=== PATIENT | female | born 1980 | race Two or more races ===

== ENCOUNTER 2024-11-28 09:09 | Emergency (ER) | payer SELFPAY ==
[2024-11-28 09:29] VITALS: BP 111/64; PULSE 73; RESP 16; TEMP 37.1; O2SAT 99
--- NOTE | 2024-11-28 09:31 | XR_ITS ---
Examination: Abdomen sonogram, Limited Date and time of exam: November 28, 2024 at 0943 hrs. Indications: Right upper abdominal pain today Technique: Real-time alonso scale transabdominal sonographic images of the upper abdomen obtained. Findings: 15 mm gallstone Normal gallbladder wall Normal common bile duct 0.3 cm Pancreatic head 2.4 cm Liver 16.9 cm fatty infiltration no focal liver lesions Normal hepatopedal portal venous flow Patent IVC Impression: Cholelithiasis, negative for cholecystitis Fatty liver
--- NOTE | 2024-11-28 09:32 | PD.EDRME ---
Rapid Medical Screening Exam RME Arrival date/time: 11/28/24 09:09 44-year-old female with no known medical history presents to the emergency room with a chief complaint of 7 out of 10 generalized abdominal pain and tenderness x 1 day. I have greeted and performed a focused initial assessment of this patient. A comprehensive ED assessment and evaluation of the patient, analysis of all test results, and completion of the medical decision making process will be conducted by additional ED providers. Chief Complaint: Abdominal Pain Vital signs: Vital Signs Temperature 98.7 F 11/28/24 09:29 Pulse Rate 73 11/28/24 09:29 Respiratory Rate 16 11/28/24 09:29 Blood Pressure 111/64 11/28/24 09:29 Pulse Oximetry (%) 99 11/28/24 09:29 Oxygen Delivery Method Room Air 11/28/24 09:29 Vital signs reviewed by provider: Yes
[2024-11-28 09:55] LABS: Collection Type, Urine Clean Catch
[2024-11-28 09:59] LABS: Bilirubin,Urine Negative (Negative); Blood,Urine Negative (Negative); Clarity,Urine Clear (Clear/Hazy); Color,Urine Colorless (Lt Yel-Yel); Glucose, Urine Negative (Negative); Ketones,Urine Negative (Negative); Leukocyte Esterase,Urine Negative (Negative); Nitrite,Urine Negative (Negative); PH,Urine 6.5 (5.0-7.0); Protein,Urine Negative (Neg - Trace); RBC,Urine 1 /hpf (0-3); Specific Gravity,Urine 1.008 (1.001-1.035); Squamous Epithelial Cell,Urine 1 /hpf (0-5); Urobilinogen,Urine Negative mg/dL (0.0-1.0); WBC,Urine 1 /hpf (0-5)
[2024-11-28 10:00] LABS: HCG Qualitative,Urine Negative
[2024-11-28 10:16] LABS: Basophils # (Auto) 0.1 Thou/mm3 (0.0-0.2); Basophils % (Auto) 1 % (0-2.5); Eosinophils # (Auto) 0.4 Thou/mm3 (0.0-0.5); Eosinophils % (Auto) 6 % (0-10); Hematocrit 37.3 % (36.0-46.0); Hemoglobin 12.8 g/dL (12.0-16.0); Immature Granulocytes % (Auto) 0 % (0-0); Immature Granulocytes Auto 0.02 Thou/mm3 (0.00-0.00); Lymphocytes # (Auto) 1.9 Thou/mm3 (1.0-4.8); Lymphocytes % (Auto) 30 % (10-50); Mean Corpuscular HGB Conc 34.3 g/dl (31.0-37.0); Mean Corpuscular Hemoglobin 28.8 pg (25.0-35.0); Mean Corpuscular Volume 84 fL (80-100); Monocytes # (Auto) 0.7 Thou/mm3 (0.0-0.8); Monocytes % (Auto) 11 % (0-12); Neutrophils # (Auto) 3.3 Thou/mm3 (1.8-7.7); Neutrophils % (Auto) 52 % (37-80); Nucleated Red Blood Cell % 0 /100 WBC (0); Platelet Count 236 Thou/mm3 (140-440); RDW Standard Deviation 40.2 fL (36.4-46.3); Red Blood Count 4.44 Miln/mm3 (4.00-5.20); White Blood Count 6.4 Thou/mm3 (3.6-11.0)
[2024-11-28 10:36] LABS: Alanine Aminotransferase 34 U/L (10-49); Albumin, Serum 4.5 gm/dL (3.5-5.0); Albumin/Globulin Ratio 1.6 (1.2-2.2); Alkaline Phosphatase 93 U/L (46-116); Anion Gap 7 (7-16); Aspartate Amino Transferase 26 U/L (0-34); BUN/Creatinine Ratio 17 Ratio (12-20); Bilirubin,Total 0.6 mg/dL (0.3-1.2); Blood Urea Nitrogen 10 mg/dL (9-23); Calcium 9.9 mg/dL (8.3-10.6); Calcium (Corrected) 9.9 mg/dL (8.5-10.1); Chloride 102 mMol/L (98-107); Creatinine (Component) 0.6 mg/dL (0.6-1.3); Globulin 2.9 gm/dL (2.3-3.5); Glucose 114 mg/dL (74-106); Lipase 52 U/L (12-53); Osmolality,Calculated 275 (275-295); Potassium 3.9 mMol/L (3.4-5.1); Sodium 138 mMol/L (136-145); Total Protein 7.4 gm/dL (5.7-8.2); eGFR > 60 See Note
[2024-11-28 11:56] VITALS: BP 119/78; PULSE 63; RESP 18; TEMP 36.7; O2SAT 99
--- NOTE | 2024-11-28 12:02 | PD.EDABDPN ---
ED Abdominal Pain RME/HPI General Chief Complaint: Abdominal Pain Stated complaint: ABD PAIN X YESTERDAY Time seen by provider: 11/28/24 11:33 Arrival date/time: 11/28/24 09:09 This is a 44-year-old female who presents to the emergency department with complaints of right upper quadrant abdominal pain. Patient reports she has had pain for 2 days. Not associate with nausea or vomiting. No fever or chills. She does have a history of cholelithiasis however has not had pain for over a year. Has not followed up with outpatient surgery. Patient did not attempt any interventions or take any OTC medications prior to ED visit. RME / HPI RME / HPI narrative: 11/28/24 09:09 44-year-old female with no known medical history presents to the emergency room with a chief complaint of 7 out of 10 generalized abdominal pain and tenderness x 1 day. I have greeted and performed a focused initial assessment of this patient. A comprehensive ED assessment and evaluation of the patient, analysis of all test results, and completion of the medical decision making process will be conducted by additional ED providers. Related Data Previous Rx's ?Medication ?Instructions ?Recorded cetirizine 10 mg tablet (Zyrtec) 10 mg PO QDAY PRN allergy symptoms 10/21/18 #30 tabs ibuprofen 800 mg tablet 800 mg PO TID PRN fever or pain 10/21/18 #60 tabs Allergies Allergy/AdvReac Type Severity Reaction Status Date / Time No Known Allergies Allergy Verified 11/28/24 09:11 Review of Systems Review of Systems Systems Reviewed: All systems reviewed, normal except as documented Narrative Review of Systems: Gen: No fever, no chills, no weight loss EYES: No discharge, no visual changes, no pain HEENT: No ear pain, no congestion, no sore throat PULM: No shortness of breath, no cough, no congestion CV: No chest pain, no dyspnea on exertion, no palpitations GI: No nausea, no vomiting, no diarrhea, ++ pain, no constipation : No frequency, no urgency,? no dysuria Musc/skel: No joint pain, no back pain Skin: No rash? Psyc: No hallucinations, no depression Heme/Lymph: No easy bleeding or bruising tendencies Neuro: No weakness, no headache ED Exam Narrative Physical exam: General: Sittiing in Exam table in no acute distress, answering questions appropriately HENT: normocephalic, atraumatic, EOMI, PERRLA, moist mucous membranes Chest: chest wall is nontender Cardiac: regular rate and rhythm, normal S1 and S2, no murmurs, rubs, or gallops, capillary refill ?2 seconds Pulmonary: clear to auscultation bilaterally, no wheezing, crackles, or rhonchi Abdominal: active bowel sounds, soft, nontender, nondistended Neuro: A&OX3, CN II-XII intact, sensation grossly intact bilaterally in UE and LE. Skin: no rashes, no ecchymosis Ext: no lower extremity edema Course Quality Measures none Orders Category Date Time Status US gall bladder Stat Exams 11/28/24 09:31 Completed CBC Stat Lab 11/28/24 10:05 Completed CMP [Comprehensive Metabolic Panel] Stat Lab 11/28/24 10:05 Completed HCG Qualitative,Urine Stat Lab 11/28/24 09:41 Completed Lipase Stat Lab 11/28/24 10:05 Completed UA [Urinalysis] Stat Lab 11/28/24 09:41 Completed Urine Culture Stat Lab 11/28/24 09:41 Received Vital Signs Vital signs: Vital Signs Temperature 98.7 F 11/28/24 09:29 Pulse Rate 73 11/28/24 09:29 Respiratory Rate 16 11/28/24 09:29 Blood Pressure 111/64 11/28/24 09:29 Pulse Oximetry (%) 99 11/28/24 09:29 Oxygen Delivery Method Room Air 11/28/24 09:29 Abdominal Pain MDM MDM Narrative MDM Narrative:: 44-year-old female awake and alert vital signs stable presents to the emergency department with complaints of upper abdominal pain. Patient's labs unremarkable reassuring. Patient's ultrasound does demonstrate a 15 mm stone. Patient's liver enzymes normal, T. bili normal. Patient's pain is controlled. Patient is advised to follow-up outpatient with PCP for general surgery referral. Patient data External records reviewed:: [facility] previous records Clinical information provided by:: patient Social determinants that could affect healthcare access:: none Patient has the following chronic illnesses:: None How is presenting disease/condition affected by chronic disease/condition?: no chronic disease Evaluation data The following diagnostics were reviewed and interpreted by me:: lab results and radiology exam(s) Lab and/or radiology exams considered but not ordered:: All imaging considered ordered. Interpretation Summary: Examination: Abdomen sonogram, Limited Date and time of exam: November 28, 2024 at 0943 hrs. Indications: Right upper abdominal pain today Technique: Real-time alonso scale transabdominal sonographic images of the upper abdomen obtained. Findings: 15 mm gallstone Normal gallbladder wall Normal common bile duct 0.3 cm Pancreatic head 2.4 cm Liver 16.9 cm fatty infiltration no focal liver lesions Normal hepatopedal portal venous flow Patent IVC Impression: Cholelithiasis, negative for cholecystitis Fatty liver Medications / Prescriptions Medications or Prescriptions considered but not ordered:: No Medication administrations:: No Consultations Consultation(s) initiated? (list below): No Diagnosis Differential diagnosis abdominal pain: abdominal pain, calculus of kidney, constipation, diverticulitis, gastroenteritis and pancreatitis Most likely diagnosis given after review of the tests above:: Cholelithiasis Admission Indicated Admission indicated?: not indicated Admission Request Was there a request for admission?: No Disposition Plan Disposition Plan: Discharge Discharge Attestation Discharge Attestation: The patient and all family members were given an opportunity to ask questions and understood the discharge instructions. Discharge instructions specifically effects, indications for sooner follow up or return to the emergency department, and the expected course of current diagnosis. Patient condition: Stable Discharge Plan Plan Patient Disposition: HOME (Self Care) Patient condition on transfer: Stable Prescriptions/Referrals Prescriptions/Med Rec: No Action cetirizine [Zyrtec] 10 mg tablet 10 mg PO QDAY PRN (Reason: allergy symptoms) Qty: 30 0RF ibuprofen 800 mg tablet 800 mg PO TID PRN (Reason: fever or pain) Qty: 60 0RF Problem List Clinical Impression: Cholelithiasis Patient/Caregiver Discharge Instructions Discharge Activity: activity as tolerated Education Materials: What Are Gallstones Additional Instructions: Please make sure you follow-up with your primary doctor in 1 to 2 days. For follow-up care. Please attempt to decrease fatty intake, no meats, no eggs, no fried food. You do have a gallstone 15 mm. You might need an outpatient referral for general surgery. Return to the emergency department if there is any worsening symptoms or change in condition. Print Language: Tongan Stand Alone Forms: Gina Award Info., Patient Portal Info Letter PA/PATIENT DAY COORDINATOR Supervising Physician PA/PATIENT DAY COORDINATOR Supervising Physician: Dr. Rivera
== END 2024-11-28 12:20 | disposition home or self-care (01) ==
LOC: SERX 12:45
PROVIDERS: Nurse Practitioner Family; Emergency Provider Emergency Medicine
DX: K80.20 Calculus of gallbladder without cholecystitis without obstruction (principal)
CPT/HCPCS: 36415; 76705; 80053; 81001; 81025; 83690; 85025; 87086; 99284

== ENCOUNTER 2024-12-31 06:45 | Day surgery (SDC) | payer MEDICAID, SELFPAY ==
[2024-12-24 10:58] VITALS: BMI 31.1
--- NOTE | 2024-12-24 11:20 | EKG_ITS ---
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
[2024-12-24 12:20] LABS: Basophils # (Auto) 0.1 Thou/mm3 (0.0-0.2); Basophils % (Auto) 1 % (0-2.5); Eosinophils # (Auto) 0.4 Thou/mm3 (0.0-0.5); Eosinophils % (Auto) 6 % (0-10); Hematocrit 36.9 % (36.0-46.0); Hemoglobin 12.6 g/dL (12.0-16.0); Immature Granulocytes % (Auto) 0 % (0-0); Immature Granulocytes Auto 0.02 Thou/mm3 (0.00-0.00); Lymphocytes % (Auto) 32 % (10-50); Mean Corpuscular HGB Conc 34.1 g/dl (31.0-37.0); Mean Corpuscular Hemoglobin 28.8 pg (25.0-35.0); Mean Corpuscular Volume 84 fL (80-100); Monocytes # (Auto) 0.5 Thou/mm3 (0.0-0.8); Monocytes % (Auto) 8 % (0-12); Neutrophils # (Auto) 3.2 Thou/mm3 (1.8-7.7); Neutrophils % (Auto) 53 % (37-80); Nucleated Red Blood Cell % 0 /100 WBC (0); Platelet Count 248 Thou/mm3 (140-440); RDW Standard Deviation 40.6 fL (36.4-46.3); Red Blood Count 4.37 Miln/mm3 (4.00-5.20); White Blood Count 6.1 Thou/mm3 (3.6-11.0)
[2024-12-24 12:38] LABS: Alanine Aminotransferase 38 U/L (10-49); Albumin, Serum 4.5 gm/dL (3.5-5.0); Albumin/Globulin Ratio 1.4 (1.2-2.2); Alkaline Phosphatase 84 U/L (46-116); Anion Gap 9 (7-16); Aspartate Amino Transferase 33 U/L (0-34); BUN/Creatinine Ratio 18 Ratio (12-20); Bilirubin,Total 0.5 mg/dL (0.3-1.2); Blood Urea Nitrogen 9 mg/dL (9-23); Carbon Dioxide 26.2 mMol/L (20.0-31.0); Chloride 104 mMol/L (98-107); Creatinine (Component) 0.5 mg/dL (0.6-1.3); Estimated Creatinine Clearance 134.1 mL/min (>60); Globulin 3.2 gm/dL (2.3-3.5); Glucose 95 mg/dL (74-106); Osmolality,Calculated 276 (275-295); Sodium 139 mMol/L (136-145); Total Protein 7.7 gm/dL (5.7-8.2); eGFR > 60 See Note
[2024-12-24 12:41] LABS: Partial Thromboplastin Time 25.3 Seconds (22.0-36.0); Prothrombin Time 10.8 Seconds (9.0-12.2)
--- NOTE | 2024-12-30 14:31 | SUR.PREOP ---
Pt notified to come in at 0700 tomorrow for surgery.
[2024-12-31] VITALS (9 sets, daily range): BP systolic 119–153; BP diastolic 65–80; PULSE 50–64; RESP 12–19; TEMP 36.6–36.9; O2SAT 99–100; BMI 30.6
[2024-12-31] MEDS: RINGERS LACTATED 1000 ML 1,000 ML 20 ML IV (07:25)
--- NOTE | 2024-12-31 10:46 | SUR.PHASEI ---
1046 Patient arrived to recovery resting comfortably in [facility] on oxygen 8L via oxy mask with an oral airway in place, breathing unlabored, vital signs stable, dressing intact to abdomen; sutures, steri-strips, gauze, medipore tape, no bleeding noted, report received from Jack LIU and Dr. Hurt
--- NOTE | 2024-12-31 10:52 | PD.SUROPNT ---
Date of Procedure 12/31/24 Pre Op Diagnosis Symptomatic cholelithiasis Post Op Diagnosis Same Procedure Laparoscopic cholecystectomy Findings Patient was found to have a noninflamed gallbladder with a single stone measuring 15 mm Procedure Description After endotracheal anesthesia was given the patient was placed in supine position and the abdomen was prepped with chloroprep solution and draped in a sterile manner. After time out was performed I injected a few cc of of half percent Marcaine with epinephrine below the umbilicus and I made an incision for about 3 cm in length. The fascia was cleaned and Veress needle was inserted to create a pneumoperitoneum up to 15 mmHg. Then introduced a 12 mm trocar and a 10 mm camera through the fascia and I inspected the intra-abdominal organs as well as the gallbladder and the liver. Another 5 mm trocar was inserted in the epigastric region under direct vision after injecting some local anesthesia. At this time the patient was kept in reverse Trendelenburg position with the left lateral tilt. The third 5 mm trocar was inserted over the mid axillary line under direct vision and a Sarath and Gabbi grasper was used to hold the fundus of the gallbladder. The retraction was carried out by the assistant account executive moving the fundus of the gallbladder towards the right shoulder of the patient to create enough traction. I placed a another 5 mm trocar in the midaxillary line just lateral to the rectus muscle under direct vision. I used a fenestrated grasper to retract the neck of the gallbladder laterally towards the patient's right hip. The Calot's triangle was exposed and I achieved the critical view of safety as follows: I dissected out the fatty tissue from the hepatocystic triangle and cleared this area. I also dissected inferior and posterior to the gallbladder to identify the cystic duct and the gallbladder wall. Then superiorly I dissected along the cystic plate up to lower one third third of the gallbladder to lift the gallbladder from the liver. At this time I confirmed that only 2 structures entering the gallbladder were cystic artery and the cystic duct. The common duct was seen distally but no dissection was carried out around the duct. I did not see any need for operative cholangiogram in this patient. The cystic duct was clipped doubly and then divided and cystic artery was similarly dealt with. Then the gallbladder was removed from the liver bed using Harmonic preet to control the small blood vessels as the dissection proceeded. The gallbladder tore on bile leaked but the stone was in place within the gallbladder. At this time I started 2 g of Ancef because it was a clean contaminated case. Extensive irrigation was carried out to clear all the bile surrounding the liver. Then the gallbladder was from the liver bed completely and delivered through the umbilical port using an Endopouch. The liver bed was coagulated with cautery to obtain satisfactory hemostasis. The trocars were pulled out from the abdominal cavity and the fascia at the umbilical incision was closed with interrupted 0 Ethibond. Subcutaneous tissues was closed with 3-0 chromic and injected a few cc of half percent Marcaine with epinephrine and the skin was closed with interrupted 4-0 Monocryl subcuticular stitches at all the trocar sites. Dressing was applied with 2 x 2 and Tegaderm. Patient tolerated the procedure well and returned to recovery room in stable condition. Anesthesia GETA Pathology / specimen Other (Gallbladder and the stone) IVF Infused 800 Estimated Blood Loss 50 Surgeon Pedro Pablo Almanza MD Surgical Staff Operation Date: 12/31/24 09:00 Case Staff Anesthesiologist: Chris Hurt RN First Assistant: Mayra Sylvester
[2024-12-31] MEDS: MORPHINE SULF INJ 10 MG/ML VIAL 3 MG IV (11:24)
[2024-12-31] MEDS: ACETAMINOPHEN IVPB 1,000 MG/100 ML VIAL 250 MG IV (11:26)
--- NOTE | 2024-12-31 12:16 | SUR.PHASEII ---
1216 Patient meets discharge criteria from recovery, awake and alert, breathing unlabored, vital signs stable, per patient her pain is tolerable, dressing intact; no bleeding noted, patient voided in the restroom prior to discharge, drinking fluids; tolerating well, denies nausea, assisted with dressing into her clothing by her , discharge instructions given to patient and patients with the assistance of the telephone hiv nurse Naomy ID#[id number] with teach-back approach, both receptive of instructions, patient signed discharge instructions. Patient given all her belongings prior to discharge, transported via wheelchair and left in a private vehicle
== END 2024-12-31 12:16 | disposition home or self-care (01) ==
PROVIDERS: PCP Family Medicine; Referring Provider Surgery; Visit Provider Surgery
PROC: 0FT44ZZ Resection of Gallbladder, Percutaneous Endoscopic Approach (ICD-10-PCS; CPT 47562; principal; 2024-12-31 09:00)
DX: K80.10 Calculus of gallbladder with chronic cholecystitis without obstruction (principal); E78.2 Mixed hyperlipidemia; Z01.810 Encounter for preprocedural cardiovascular examination
CPT/HCPCS: 47562; 36415; 80053; 85025; 85610; 85730; 93005; A4217; A4649; J0131; J0690; J2250; J2270; J2704; J3010; J3490; J7120

== ENCOUNTER 2025-03-28 11:09 | Emergency (ER) | payer MEDICAID, SELFPAY ==
[2025-03-28 11:18] VITALS: BP 126/74; PULSE 74; RESP 16; TEMP 37.1; O2SAT 100; BMI 30.2
--- NOTE | 2025-03-28 11:27 | EDNOTE_ITS ---
ED Female Urogenital RME/HPI General Chief complaint: Urogenital-Female Stated complaint: Heavy vaginal bleeding with period Time Seen by Provider: 03/28/25 11:12 Source: patient Arrival date/time: 03/28/25 11:09 45-year-old female with no known medical history presents to the emergency room with a chief complaint of heavy vaginal bleeding. Patient states she is currently on her period but her menses has been a lot heavier than usual. Mode of arrival: ambulatory Limitations: no limitations Related Data Home Medications ?Medication ?Instructions ?Recorded ?Confirmed metformin 500 mg/5 mL oral solution 500 mg PO HS 12/2612/26/24 Previous Rx's ?Medication ?Instructions ?Recorded cetirizine 10 mg tablet (Zyrtec) 10 mg PO QDAY PRN all ergy symptoms 10/21/18 #30 tabs Allergies Allergy/AdvReac Type Severity Reaction Status Date / Time No Known Allergies Allergy Verified 12/24/24 10:56 ED Exam General Limitations: Present no limitations Course Quality Measures none Orders Category Date Time Status US pelvic complete Stat Exams 03/28/25 11:28 Completed CBC Stat Lab 03/28/25 12:03 Completed CMP [Comprehensive Metabolic Panel] Stat Lab 03/28/25 12:03 Completed UA, C/S IF [Urinalysis, C/S if Indicated] Stat Lab 03/28/25 11:57 Completed Vital Signs Vital signs: Vital Signs Temperature 98.8 F 03/28/25 11:18 Pulse Rate 74 03/28/25 11:18 Respiratory Rate 16 03/28/25 11:18 Blood Pressure 126/74 03/28/25 11:18 Pulse Oximetry (%) 100 03/28/25 11:18 Oxygen Delivery Method Room Air 03/28/25 11:18 Urogenital - Female MDM Narrative MDM Narrative:: 45-year-old female with no known medical history presents to the emergency room with a chief complaint of heavy vaginal bleeding. Patient states she is currently on her period but her menses has been a lot heavier than usual. Patient is hemodynamically stable and in no apparent distress Physical examination shows a soft nontender abdomen. Patient states she is on her menses but she is bleeding heavier than usual. Patient also states she is having some left pelvic pain. Ultrasound of the pelvis was completed and was negative for any acute findings. H&H was within normal limits. CBC CMP and urinalysis were within normal limits Patient was discharged and educated to follow-up with primary care provider in the next 24 to 48 hours and return to the emergency room for any evidence of worsening signs or symptoms Patient data External records reviewed:: [facility] previous records Clinical information provided by:: patient Social determinants that could affect healthcare access:: none Patient has the following chronic illnesses:: No chronic illness How is presenting disease/condition affected by chronic disease/condition?: no chronic disease Evaluation data The following diagnostics were reviewed and interpreted by me:: lab results and radiology exam(s) Lab and/or radiology exams considered but not ordered:: Labs and radiology exams considered and ordered Interpretation Summary: Pelvic ultrasound-FINDINGS: Uterus 7.6 cm endometrial stripe 0.4 cm No uterine mass or intrauterine gestation Right ovary 3.1 cm arterial flow. Left ovary 3.4 cm arterial flow IMPRESSION: No uterine mass or intrauterine gestation Medications / Prescriptions Medications or Prescriptions considered but not ordered:: Medication not given Medication administrations:: Medication not given Consultations Consultation(s) initiated? (list below): No Diagnosis Urogenital Female Differential Diagnosis: cystitis and other (Urinary tract infection/vaginal bleeding/ovarian cyst) Most likely diagnosis given after review of the tests above:: Vaginal bleeding Admission Indicated Admission indicated?: not indicated Admission Request Was there a request for admission?: No Disposition Plan Disposition Plan: Discharge Discharge Attestation Discharge Attestation: The patient and all family members were given an opportunity to ask questions and understood the discharge instructions. Discharge instructions specifically effects, indications for sooner follow up or return to the emergency department, and the expected course of current diagnosis. Patient condition: Stable Discharge Plan Plan Patient Disposition: HOME (Self Care) Discharge Disposition comment: Stable Prescriptions/Referrals Prescriptions/Med Rec: No Action cetirizine [Zyrtec] 10 mg tablet 10 mg PO QDAY PRN (Reason: allergy symptoms) Qty: 30 0RF metformin 500 mg/5 mL solution 500 mg PO HS Referrals: Gustavo Lopez MD [Primary Care Provider] - In 1 week Problem List Clinical Impression: Vaginal bleeding Patient/Caregiver Discharge Instructions Education Materials: ED Dysfunctional Uterine Bleeding Additional Instructions: Por favor, consulte con duvall m?dico de cabecera en las pr?ximas 24 a 48 horas. Duvall ecograf?a p?lvica y gino an?lisis de marcela fueron normales. Por favor, consulte con un ginec?logo/obstetra y acuda a urgencias si presenta cualquier signo de empeoramiento de los signos o s?ntomas. Print Language: Korean Stand Alone Forms: Gina Award Info., Patient Portal Info Letter PA/GAS DISTRIBUTION AND EMERGENCY CLERK Supervising Physician PA/GAS DISTRIBUTION AND EMERGENCY CLERK Supervising Physician: Dr. Sharp
--- NOTE | 2025-03-28 11:28 | XR_ITS ---
Examination: Pelvic ultrasound, transabdominal, complete Technique: Transabdominal ultrasound of the pelvis performed using grayscale imaging Date and time of exam: March 28, 2025 1326 hours INDICATIONS: Irregular heavy vaginal bleeding beginning 6 months ago FINDINGS: Uterus 7.6 cm endometrial stripe 0.4 cm No uterine mass or intrauterine gestation Right ovary 3.1 cm arterial flow. Left ovary 3.4 cm arterial flow IMPRESSION: No uterine mass or intrauterine gestation
--- NOTE | 2025-03-28 12:08 | PC.NURSE ---
water given for US.
[2025-03-28 12:10] LABS: Collection Type, Urine Clean Catch
[2025-03-28 12:26] LABS: Basophils # (Auto) 0.1 Thou/mm3 (0.0-0.2); Basophils % (Auto) 1 % (0-2.5); Eosinophils # (Auto) 0.4 Thou/mm3 (0.0-0.5); Eosinophils % (Auto) 7 % (0-10); Hemoglobin 12.7 g/dL (12.0-16.0); Immature Granulocytes % (Auto) 1 % (0-0); Immature Granulocytes Auto 0.03 Thou/mm3 (0.00-0.00); Lymphocytes # (Auto) 1.4 Thou/mm3 (1.0-4.8); Lymphocytes % (Auto) 23 % (10-50); Mean Corpuscular HGB Conc 34.3 g/dl (31.0-37.0); Mean Corpuscular Hemoglobin 29.4 pg (25.0-35.0); Mean Corpuscular Volume 86 fL (80-100); Monocytes # (Auto) 0.7 Thou/mm3 (0.0-0.8); Monocytes % (Auto) 11 % (0-12); Neutrophils # (Auto) 3.7 Thou/mm3 (1.8-7.7); Neutrophils % (Auto) 58 % (37-80); Nucleated Red Blood Cell % 0 /100 WBC (0); Platelet Count 246 Thou/mm3 (140-440); RDW Standard Deviation 41.5 fL (36.4-46.3); Red Blood Count 4.32 Miln/mm3 (4.00-5.20); White Blood Count 6.3 Thou/mm3 (3.6-11.0)
[2025-03-28 12:41] LABS: Alanine Aminotransferase 20 U/L (10-49); Albumin, Serum 4.3 gm/dL (3.5-5.0); Albumin/Globulin Ratio 1.5 (1.2-2.2); Alkaline Phosphatase 101 U/L (46-116); Anion Gap 7 (7-16); Aspartate Amino Transferase 18 U/L (0-34); BUN/Creatinine Ratio 11 Ratio (12-20); Bilirubin,Total 0.6 mg/dL (0.3-1.2); Blood Urea Nitrogen 8 mg/dL (9-23); Calcium 9.4 mg/dL (8.3-10.6); Calcium (Corrected) 9.4 mg/dL (8.5-10.1); Carbon Dioxide 29.1 mMol/L (20.0-31.0); Chloride 104 mMol/L (98-107); Creatinine (Component) 0.7 mg/dL (0.6-1.3); Estimated Creatinine Clearance 89.6 mL/min (>60); Globulin 2.8 gm/dL (2.3-3.5); Glucose 120 mg/dL (74-106); Osmolality,Calculated 278 (275-295); Potassium 3.9 mMol/L (3.4-5.1); Sodium 140 mMol/L (136-145); Total Protein 7.1 gm/dL (5.7-8.2); eGFR > 60 See Note
[2025-03-28 12:42] LABS: Bacteria,Urine Rare; Bilirubin,Urine Negative (Negative); Blood,Urine 3+ (Negative); Color,Urine Yellow (Lt Yel-Yel); Culture Indicated,Urine Not Indicated; Glucose, Urine Negative (Negative); Ketones,Urine Trace (Negative); Leukocyte Esterase,Urine Negative (Negative); Nitrite,Urine Negative (Negative); Protein,Urine 1+ (Neg - Trace); RBC,Urine 1222 /hpf (0-3); Specific Gravity,Urine 1.035 (1.001-1.035); Squamous Epithelial Cell,Urine 3 /hpf (0-5); Urobilinogen,Urine Negative mg/dL (0.0-1.0); WBC,Urine 3 /hpf (0-5)
[2025-03-28 12:53] LABS: Clarity,Urine Hazy (Clear/Hazy)
[2025-03-28 15:09] VITALS: BP 123/78; PULSE 82; RESP 18; TEMP 36.6; O2SAT 95
== END 2025-03-28 15:11 | disposition home or self-care (01) ==
PROVIDERS: Nurse Practitioner Family; Emergency Provider Emergency Medicine; PCP Family Medicine
DX: N92.0 Excessive and frequent menstruation with regular cycle (principal)
CPT/HCPCS: 36415; 76856; 80053; 81001; 85025; 99284